=== PATIENT | female | born 1965 | race Caucasian/White ===

== ENCOUNTER 2024-05-07 17:20 | Emergency (ER) | payer MEDICAID ==
[~2024-05-07] VITALS: Ht 160 cm; Wt 45.4 kg
[2024-05-07 17:20] VITALS: BP_SYST 148; PULSE 113; RESP 18; TEMP 97.7; O2SAT 97
[2024-05-07 18:46] LABS: HEMOGLOBIN 14.4 g/dL (12.0-16.0); NEUTROPHILS # (AUTO) 8.8 K/uL (1.8-7.7)
[2024-05-07 18:55] LABS: BASOPHILS % (AUTO) 0.4 % (0.0-2.0); EOSINOPHILS # (AUTO) 0.4 K/uL (0.0-0.4); EOSINOPHILS % (AUTO) 3.9 % (0.0-4.0); HEMATOCRIT 40.3 % (36-48); LYMPHOCYTES # (AUTO) 0.6 K/uL (1.0-5.5); LYMPHOCYTES % (AUTO) 6.1 % (20.5-51.5); MEAN CORPUSCULAR HEMOGLOBIN 30 pg (27-31); MEAN CORPUSCULAR HGB CONC 36 % (32-36); MEAN CORPUSCULAR VOLUME 84 fL (79.0-98.0); MONOCYTES # (AUTO) 0.5 K/uL (0.0-1.0); MONOCYTES % (AUTO) 4.5 % (1.7-9.3); NEUTROPHILS % (AUTO) 85.1 % (40.0-70.0); PLATELET COUNT (AUTO) 185 K/uL (130-430); RED BLOOD CELL COUNT(AUTO) 4.79 MIL/uL (4.2-6.2); RED CELL DISTRIBUTION WIDTH 13.2 % (9.0-15.0); WHITE BLOOD COUNT (AUTO) 10.4 K/uL (4.8-10.8)
[2024-05-07 19:17] LABS: ALANINE AMINOTRANSFERASE 29 U/L (12-78); ALBUMIN 3.5 g/dL (3.4-4.8); ANION GAP 13 (5-15); ASPARTATE AMINOTRANSFERASE 19 U/L (10-37); BILIRUBIN,DIRECT 0.1 mg/dL (0.0-0.3); CALCIUM 9.4 mg/dL (8.4-11.0); CARBON DIOXIDE 25 mmol/L (23-29); CHLORIDE 97 mmol/L (98-107); CREATININE 1.01 mg/dL (0.55-1.30); GFR AFRICAN AMERICAN 72 mL/min (>90); GLUCOSE 370 mg/dL (74-106); LIPASE 41 U/L (16-77); POTASSIUM 3.9 mmol/L (3.5-5.1); SODIUM SERUM 135 mmol/L (136-145); TOTAL BILIRUBIN 0.5 mg/dL (0.0-1.0); TOTAL PROTEIN, SERUM 7.1 g/dL (6.4-8.3); UREA NITROGEN, BLOOD 24 mg/dL (8-21)
[2024-05-07 19:18] LABS: GFR NON AFRICAN-AMERICAN 60 mL/min (>90)
[2024-05-07 21:28] LABS: BILIRUBIN,URINE NEGATIVE (NEGATIVE); BLOOD, URINE 2+ (NEGATIVE); COLOR,URINE YELLOW (YELLOW); GLUCOSE,URINE 3+ (NEGATIVE); KETONES,URINE 3+ (NEGATIVE); LEUKOCYTE ESTERASE ,URINE NEGATIVE (NEGATIVE); NITRITE, URINE NEGATIVE (NEGATIVE); PROTEIN URINE 2+ (NEGATIVE); UROBILINOGEN,URINE 0.2 (0.2-1.0)
[2024-05-07] MEDS: NACL 0.9% 1,000 ML IV ONE (21:30)
[2024-05-07 21:43] LABS: CLARITY/URINE SLIGHTLY HAZY (CLEAR)
[2024-05-07 22:24] LABS: BACTERIA,URINE FEW /HPF (None Seen); FINE GRANULAR CASTS,URINE 0-10 /LPF (None Seen); HYALINE CASTS, URINE 0-10 /LPF (None Seen); MUCUS,URINE 1+ /LPF (None Seen)
[2024-05-07 23:40] VITALS: BP_SYST 142; PULSE 110; RESP 15; TEMP 97.8; O2SAT 99
== END 2024-05-07 23:40 | disposition home or self-care (01) ==
LOC: SED 17:20
DX: E11.65 Type 2 diabetes mellitus with hyperglycemia (principal); E86.0 Dehydration; R10.30 Lower abdominal pain, unspecified; R42 Dizziness and giddiness; I10 Essential (primary) hypertension; Z88.5 Allergy status to narcotic agent
CPT/HCPCS: 99285; 74176; 96360; 71045; 80076; 80048; 81001; 83690; 85025; 87086; 84484; 36415; 93005; 82948; 83605; 82397; J7030; 81000; 81015